=== PATIENT | male | born 1945 | race Caucasian/White ===

== ENCOUNTER 2023-01-29 19:27 | Emergency (ER) | payer MEDICARE, OTHER ==
[2023-01-29] MEDS ORDERED: Lidocaine 1% 10 ML MDV INJECT ONE (19:45)
== END 2023-01-29 20:15 | disposition home or self-care (01) ==
LOC: VM.ED 19:27
DX: S61.411A Laceration without foreign body of right hand, initial encounter (principal); I10 Essential (primary) hypertension; E66.9 Obesity, unspecified; J45.909 Unspecified asthma, uncomplicated; Z79.82 Long term (current) use of aspirin; Z79.899 Other long term (current) drug therapy; Z91.048 Other nonmedicinal substance allergy status; W26.8XXA Contact with other sharp object(s), not elsewhere classified, initial encounter
CPT/HCPCS: 12001; 99282; J3490